=== PATIENT | male | born 1960 | race Caucasian/White ===

== ENCOUNTER 2019-12-24 13:42 | Inpatient (IN) | payer OTHER ==
[2019-12-24 14:33] LABS: #Lymphocytes 0.7 thou/uL (1.20-3.40); #Monocytes 0.3 thou/uL (0.11-0.59); #Neutrophils 3.6 thou/uL (1.40-6.50); %Basophils 0.3 % (0.0-1.0); %Lymphocytes 15.2 % (21.0-51.0); %Monocytes 5.8 % (0.0-10.0); %Neutrophils 78.8 % (42.0-75.0); Hemoglobin 15.6 g/dL (14.0-18.0); Mean Corpuscular HGB CONC 32.4 g/dL (32.0-36.0); Mean Corpuscular Hemoglobin 30.8 pg (27.0-31.0); Mean Corpuscular Volume 94.9 fL (78.0-98.0); Mean Platelet Volume 7.4 fL (7.4-10.4); Platelet Count 165 thou/uL (130-400); RBC Distribution Width 11.8 % (11.5-14.5); Red Blood Cell (RBC) Count 5.07 mill/uL (4.70-6.10); White Blood Cell (WBC) Count 4.6 thou/uL (4.8-10.8)
[2019-12-24 14:56] LABS: ALT (SGPT) 14 U/L (8-55); AST (SGOT) 22 U/L (5-34); Albumin 3.8 g/dL (3.5-5.0); Alkaline Phosphatase 92 U/L (40-110); Anion Gap 15 mmol/L (10-20); BUN (Urea Nitrogen) 15 mg/dL (8.4-25.7); Bilirubin, Total 0.3 mg/dL (0.2-1.2); Calc. Creatinine Clearance 0 mL/min (70-130); Calcium 8.1 mg/dL (7.8-10.44); Carbon Dioxide 17 mmol/L (22-29); Chloride 106 mmol/L (98-107); Estimated GFR-MDRD 85; Glucose 103 mg/dL (70-105); Protein, Total 6.8 g/dL (6.0-8.3); Sodium 134 mmol/L (136-145)
--- NOTE | 2019-12-24 15:18 | CT ---
CHEST CT WITHOUT IV CONTRAST: HISTORY: Shortness of breath. History of positive COVID. FINDINGS: There are extensive patchy poorly defined opacity changes bilaterally involving the majority of the r ight and left lungs. Some of this could well represent some underlying chronic interstitial disease, but this has a significant component of subtle ground-glass opacity changes as well as crazy paving pattern described with COVID lung disease. There are some scattered small mediastinal lymph nodes. There is no significant pleural effusion. Visualized upper abdomen is unremarkable, except for a s mall hiatal hernia. There is minimal right posterior pleural thickening and some minimal linear subp leural changes, possibly some associated partial atelectasis. Three-vessel coronary artery calcific disease. IMPRESSION: Extensive ground-glass opacity changes noted bilaterally and an appearance that is consistent with th at of crazy paving pattern, a finding that can be seen in association with COVID 19. No significan t pleural effusion. Small hiatal hernia. Other findings as above. POS: [facility]
--- NOTE | 2019-12-24 15:24 | CT ---
BRAIN CT WITHOUT IV CONTRAST: HISTORY: Shortness of breath, COVID positive. COMPARISON: 11/17/2016. FINDINGS: No focal mass or midline shift. No intra- or extraaxial hemorrhage. Stable circumscribed lucency in the left parietal bone of the skull. IMPRESSION: No significant acute intracranial process. No mass or bleed. Findings were discussed with Macie in the emergency room at 3:15 p.m. who indicated she would conta ct Dr. Pardo in this regard. CODE CR
[2019-12-24] MEDS ORDERED: hydrALAZINE 20 MG/ML VIAL SLOW IVP PRN (21:24)
[2019-12-24] MEDS ORDERED: Ondansetron PF 4 MG/2 ML Vial IVP PRN (21:24)
[2019-12-24] MEDS ORDERED: Ondansetron ODT 4 MG TAB PO PRN (21:24)
[2019-12-24] MEDS: Acetaminophen 325 MG TAB PO PRN (21:41)
[2019-12-24] MEDS ORDERED: Enoxaparin Sodium 100 MG/ML SYRINGE SC SCH (21:45)
[2019-12-24] MEDS: Azithromycin 500 MG in Sodium Chloride 0.9% 250 ML 250 ML IVPB SCH (21:50)
[2019-12-24] MEDS: Sodium Chloride 0.9% 1,000 ML IV SCH (21:50)
--- NOTE | 2019-12-24 22:49 | HP ---
PRIMARY CARE PHYSICIAN: None. CHIEF COMPLAINT: "I am having trouble breathing." HISTORY OF PRESENT ILLNESS: Mr. Edmondson is a pleasant 59-year-old gentleman, who has a history of asthma as well as COPD. He is currently in the custody of the [place] [facility]. He says that about 3 or 4 days ago, he started having trouble with breathing. He said he thought it was initially an asthma attack, but it got progressively worse. He says about 2 days ago he got tested for COVID-19 and was positive. He says over the course of few days, it has become increasingly worse. He says he aches all over. He has only had an occasional cough. He has had some fever, he says for the past 3 days as well as some nausea, but no vomiting. He says he has no appetite and has not eaten much in the last 2 days. He denies having any diarrhea; however. He denies any leg pain specifically other than generalized body aches and he says his arms feel a little bit weak in both upper extremities, both the right and the left. He was sent over from the skilled nursing due to concerns for increasing oxygen requirements. His O2 sats were dropping into the 80s even on supplemental oxygen via nasal cannula and he was evaluated here in the ER. CT scan showed bilateral ground-glass opacities and he is being admitted for further treatment. REVIEW OF SYSTEMS: All systems were reviewed and are negative except for that mentioned in the history of present illness. PAST MEDICAL HISTORY: Significant for asthma as well as COPD. PAST SURGICAL HISTORY: He has had surgery on his neck as well as his legs. ALLERGIES: TO VALIUM; HE SAYS, IT CAUSES HIM TO BLACKOUT. SOCIAL HISTORY: He is a former smoker. He quit about 30 years ago. Prior to that, he smoked up to 2 packs a day. He denies any alcohol use. He does admit to methamphetamine abuse in the past and he did say he used injection methamphetamine. FAMILY HISTORY: No history of any heritable diseases. CURRENT MEDICATIONS: Taken from the ER records and include; 1. Tegretol 200 mg two times a day. 2. Baclofen 20 mg twice daily. 3. Naprosyn 500 mg twice a day. 4. Prilosec 40 mg daily. PHYSICAL EXAMINATION: GENERAL: He is alert and oriented. He appears to be in no acute distress. He is well developed and well nourished. VITAL SIGNS: Blood pressure is 122/74, heart rate is ranging from 113 to 97, respiratory rate is around 22, and temperature was 99.5. HEENT: Pupils are equal, round, and reactive. Extraocular muscles are intact. Sclerae anicteric. Throat; no erythema, no exudates. NECK: No adenopathy. No bruits. LUNGS: He has bilateral fine crackles throughout and a mild expiratory wheeze. No rhonchi. CARDIOVASCULAR: Heart rate is a bit rapid. It is regular. There are no murmurs, clicks, or rubs. ABDOMEN: Soft. It is nontender, nondistended. Positive for bowel sounds. No rebound. No guarding. No organomegaly. EXTREMITIES: There is no clubbing or cyanosis. No edema. No calf tenderness. No joint effusions. NEUROLOGIC: His cranial nerves 2 through 12 are intact. Muscle strength is 5/5 in both his upper and lower extremities. He has palpable dorsalis pedis pulses bilaterally. Good capillary refill. SKIN AND INTEGUMENT: No skin changes. No rash. LABORATORY RESULTS: The white blood cell count is 4.6, hemoglobin 15.6, hematocrit is 48.1, and platelet count is 165. Sodium 134, potassium 4.0, chloride is 106, CO2 is 17, BUN of 15, creatinine 0.91, glucose is 103. Troponin . Again, CT findings are consistent with bilateral ground-glass opacities and that is by my reading. ASSESSMENT: This is a pleasant 59-year-old gentleman, who presents with acute respiratory failure with hypoxemia due to COVID-19 pneumonia. He is requiring high amounts of supplemental oxygen. He will be admitted to the hospital. We will place him on azithromycin, albuterol metered dose inhaler q.6 hours. We will hold off on any steroids right now as he does not have a lot of significant wheezing on exam. We will put him on anticoagulation due to the concerns for thrombosis in these patients. Monitor his inflammatory markers and if he decompensates, we will consult Pulmonology and see whether or not he is a candidate for remdesivir or convalescent plasma, but at that this time we will be treating supportive. Job ID: [id number]
[2019-12-25] MEDS: Albuterol 200 PUFF (6.7GM INHALER) INH SCH ×5 (00:49→23:59)
[2019-12-25] MEDS ORDERED: Albuterol Sulfate 2.5 mg/3 ml Neb NEB SCH (01:00)
[2019-12-25] MEDS: HYDROcodone/Acetaminophen 5/325 mg Tablet PO PRN ×2 (01:47→06:17)
[2019-12-25 05:15] LABS: #Lymphocytes 1.2 thou/uL (1.20-3.40); #Monocytes 0.2 thou/uL (0.11-0.59); #Neutrophils 3.8 thou/uL (1.40-6.50); %Basophils 0.2 % (0.0-1.0); %Eosinophils 0.1 % (0.0-10.0); %Lymphocytes 22.2 % (21.0-51.0); %Monocytes 4.5 % (0.0-10.0); %Neutrophils 72.9 % (42.0-75.0); Hemoglobin 14.7 g/dL (14.0-18.0); Mean Corpuscular HGB CONC 33.9 g/dL (32.0-36.0); Mean Corpuscular Hemoglobin 31.9 pg (27.0-31.0); Mean Corpuscular Volume 93.9 fL (78.0-98.0); Mean Platelet Volume 7.5 fL (7.4-10.4); Platelet Count 142 thou/uL (130-400); RBC Distribution Width 11.6 % (11.5-14.5); Red Blood Cell (RBC) Count 4.63 mill/uL (4.70-6.10); White Blood Cell (WBC) Count 5.3 thou/uL (4.8-10.8)
[2019-12-25 05:34] LABS: Anion Gap 13 mmol/L (10-20); BUN (Urea Nitrogen) 13 mg/dL (8.4-25.7); CRP (Inflammatory) 15.59 mg/dL (= or < 0.5); Calc. Creatinine Clearance 144 mL/min (70-130); Calcium 7.8 mg/dL (7.8-10.44); Carbon Dioxide 21 mmol/L (22-29); Chloride 105 mmol/L (98-107); Estimated GFR-MDRD Greater than 90; Glucose 95 mg/dL (70-105); Potassium 3.9 mmol/L (3.5-5.1); Sodium 135 mmol/L (136-145)
[2019-12-25] MEDS: Mometasone 100 MCG/Formoterol 5 MCG 120 PUFF INHALER INH SCH ×2 (09:34→17:42)
[2019-12-25] MEDS: Ascorbic Acid 500 mg Chewable Tablet PO SCH (09:35)
[2019-12-25] MEDS: Folic Acid/Vit B Comp W-C PO SCH (09:36)
[2019-12-25] MEDS: Enoxaparin Sodium 100 MG/ML SYRINGE SC SCH ×2 (09:36→19:27)
--- NOTE | 2019-12-25 12:40 | PDOC.HOSPP ---
- Subjective Encounter Date: 12/25/19 Encounter Time: 12:39 Subjective: Mr. Edmondson was seen today in follow-up of COVID positive pneumonia. He notes body aches. He says he feels the degree of dyspnea is the same. - Objective Vital Signs & Weight: Vital Signs (12 hours) Temp Pulse Resp BP Pulse Ox 12/25/19 09:35 100.4 F H 93 24 H 104/61 91 L 12/25/19 03:50 99.9 F H 98 22 H 96/63 93 L 12/25/19 00:59 99.6 F 101 H 23 H 106/64 99 Weight Weight 228 lb 9.6 oz I&O: 12/24/19 12/25/19 12/26/19 06:59 06:59 06:59 Intake Total 1159 Output Total 950 Balance 209 Result Diagrams: 12/25/19 04:55 12/25/19 04:55 Hospitalist ROS - Medication Medications: Active Medications Generic Name Dose Route Start Last Admin Trade Name Freq PRN Reason Stop Dose Admin Acetaminophen 650 mg 12/24/19 21:24 12/24/19 21:41 Tylenol PO 650 mg Q4H PRN Administration Headache/Fever/Mild Pain (1-3) Hydrocodone Bitart/Acetaminophen 1 tab 12/24/19 21:24 12/25/19 06:17 [place] 5/325 PO 1 tab Q4H PRN Administration Moderate Pain (4-6) Albuterol Sulfate 2 puff 12/25/19 01:00 12/25/19 06:17 Proventil Hfa INH 2 puff [id number] KENYON Administration Ascorbic Acid 1,000 mg 12/25/19 09:00 12/25/19 09:35 Vitamin C PO 1,000 mg DAILY KENYON Administration Enoxaparin Sodium 100 mg 12/25/19 09:00 12/25/19 09:36 Lovenox SC 100 mg 0900,2100 KENYON Administration Azithromycin 500 mg/ Sodium 250 mls @ 250 mls/hr 12/24/19 22:30 12/24/19 21: 50 Chloride IVPB 250 mls 2230 KENYON Administration Sodium Chloride 1,000 mls @ 60 mls/hr 12/24/19 21:24 12/24/19 21:50 Normal Saline 0.9% IV 1,000 mls .[id number] KENYON Administration Mometasone Furoate/Formoterol Fumar 2 puff 12/25/19 06:30 12/25/19 09:34 Dulera 100 Mcg/5 Mcg Inhaler INH 2 puff BID-RT KENYON Administration Ondansetron HCl 4 mg 12/24/19 21:24 12/24/19 21:43 Zofran IVP 4 mg Q6H PRN Administration Nausea/Vomiting Pantoprazole Sodium 40 mg 12/25/19 09:00 12/25/19 09:36 Protonix PO 40 mg DAILY KENYON Administration Vitamin B Complex/Vit C/Folic Acid 1 tab 12/25/19 09:00 12/25/19 09:36 Nephro-Alicia Tablet PO 1 tab DAILY KENYON Administration - Exam Eye: PERRL, anicteric sclera Heart: RRR, no murmur, no gallops, no rubs, normal peripheral pulses Respiratory: rales (+ rales bilaterally, no wheezing or rhonchi) Gastrointestinal: soft, non-tender, non-distended, normal bowel sounds, no palpable masses, no hepatomegaly Extremities: no cyanosis, no edema (Palpable pulses bilaterally, no lesions) Hosp A/P (1) Acute and chronic respiratory failure with hypoxia Code(s): J96.21 - ACUTE AND CHRONIC RESPIRATORY FAILURE WITH HYPOXIA Status: Acute (2) Pneumonia due to COVID-19 virus Code(s): U07.1 - COVID-19; J12.89 - OTHER VIRAL PNEUMONIA Status: Acute (3) COPD (chronic obstructive pulmonary disease) Status: Acute - Plan * Acute on chronic respiratory failure due to COVID positive pneumonia- continue supportive care * Continue Azithromycin and high flow oxygen * Will continue anticoagulation *
[2019-12-25] MEDS: Acetaminophen 325 MG TAB PO PRN ×2 (12:42→17:42)
[2019-12-25] MEDS: Sodium Chloride 0.9% 1,000 ML IV SCH (12:54)
[2019-12-25] MEDS: Ibuprofen 800 MG TAB PO PRN (19:27)
[2019-12-25] MEDS: Azithromycin 500 MG in Sodium Chloride 0.9% 250 ML 250 ML IVPB SCH (21:38)
[2019-12-26] MEDS: Sodium Chloride 0.9% 1,000 ML IV SCH ×2 (05:36→20:37)
[2019-12-26] MEDS: Albuterol 200 PUFF (6.7GM INHALER) INH SCH ×2 (05:36→16:45)
[2019-12-26] MEDS: Mometasone 100 MCG/Formoterol 5 MCG 120 PUFF INHALER INH SCH (05:36)
[2019-12-26] MEDS: Ibuprofen 800 MG TAB PO PRN (05:42)
[2019-12-26] MEDS: Folic Acid/Vit B Comp W-C PO SCH (09:17)
[2019-12-26] MEDS: Enoxaparin Sodium 100 MG/ML SYRINGE SC SCH ×2 (09:17→20:38)
[2019-12-26] MEDS: Ascorbic Acid 500 mg Chewable Tablet PO SCH (09:17)
[2019-12-26] MEDS ORDERED: Propofol 1,000 MG/100 ML VIAL IV ONE (14:06)
[2019-12-26] MEDS ORDERED: PROPOFOL 20 ML ONE (14:06)
[2019-12-26] MEDS ORDERED: CCU Electrolyte Replacement 1 EACH FS ONE (14:07)
[2019-12-26] MEDS ORDERED: Rocuronium Bromide 10 MG/ML (10ML VIAL) ONE (14:07)
[2019-12-26] MEDS ORDERED: Ventilator Sedation Protocol 1 EACH FS SCH (14:15)
[2019-12-26] MEDS ORDERED: Lorazepam 2 MG/ML VIAL SLOW IVP PRN (14:16)
[2019-12-26] MEDS ORDERED: DISCONTINUE PREVIOUS NARCOTIC PAIN MEDICATIONS AND BENZODIAZEPINES FS SCH (14:16)
[2019-12-26] MEDS ORDERED: Fentanyl BOLUS 250 ML IVPB PRN (14:16)
[2019-12-26] MEDS ORDERED: Morphine 2 MG/ML SYRINGE SLOW IVP PRN (14:16)
[2019-12-26] MEDS ORDERED: Propofol BOLUS 1,000 MG/100 ML VIAL IV PRN (14:16)
[2019-12-26] MEDS ORDERED: Potassium Chloride 40 MEQ in Sodium Chloride 0.9% 250 ML 250 ML IVPB PRN (14:21)
[2019-12-26] MEDS ORDERED: Potassium Phosphate 9 MMOL in Sodium Chloride 0.9% 100 ML IVPB PRN (14:21)
[2019-12-26] MEDS ORDERED: Potassium Phosphate 12 MMOL in Sodium Chloride 0.9% 250 ML 250 ML IV PRN (14:21)
[2019-12-26] MEDS ORDERED: PHOS-NAK 1 PKT PACK PO PRN ×2 (14:21)
[2019-12-26] MEDS ORDERED: Potassium Chloride 20 MEQ TAB PO PRN (14:21)
[2019-12-26] MEDS ORDERED: Potassium Phosphate 15 MMOL in Sodium Chloride 0.9% 250 ML 250 ML IV PRN (14:21)
[2019-12-26] MEDS ORDERED: CCU ELECTROLYTE REPLACEMENT PROTOCOL FS PRN (14:21)
[2019-12-26] MEDS ORDERED: Magnesium 2 GM/50 ML 2 GM in Premix Bag 1 BAG IVPB PRN (14:21)
[2019-12-26] MEDS ORDERED: Magnesium Oxide 400 MG TAB PO PRN ×2 (14:21)
[2019-12-26] MEDS ORDERED: Potassium Chloride 40 MEQ in Premix Bag 1 BAG IVPB PRN (14:21)
[2019-12-26 14:47] LABS: Actual Bicarbonate (HCO3a) 19.2 mEq/L (22-28); Base Excess (BEa) -6.9 mEq/L (-2.0 to +3.0); CO2 Tension 40.8 mmHg (35.0-45.0); Calcium, Ionized 1.18 mmol/L (1.12-1.30); Carboxyhemoglobin (COHb) 0.7 gm% (0.0-3.0); Hemoglobin (Hb) 15.5 g/dL (14.0-18.0); O2 Tension (PaO2), arterial 92.7 mmHg (80.0-100.0); pH, Arterial 7.29 (7.35-7.45)
[2019-12-26 14:49] LABS: Puncture Site RRA
--- NOTE | 2019-12-26 15:58 | RAD ---
SINGLE VIEW OF THE CHEST: COMPARISON: None. HISTORY: Central line placement. FINDINGS: A single view of the chest shows a normal-size cardiomediastinal silhouette. An endotracheal tube is seen with its tip between the clavicles. An NG tube courses off the inferior aspect of the film. A left subclavian central venous catheter is seen with its tip in the superior vena cava. Diffuse mix ed alveolar/interstitial opacities are seen. IMPRESSION: 1. Appropriate position of lines and tubes. 2. Multifocal infiltrates. POS: [facility]
--- NOTE | 2019-12-26 15:59 | OP ---
DATE OF PROCEDURE: 12/26/2019 PROCEDURE PERFORMED: Left subclavian central line placement. PREOPERATIVE DIAGNOSIS: Poor IV access. POSTOPERATIVE DIAGNOSIS: Successful central line placement. ANESTHESIA: None. DESCRIPTION OF PROCEDURE: The patient under anesthesia for the intubation. His left subclavian area was cleansed with chlorhexidine and draped sterilely. 1% lidocaine was used to anesthetize the entry site. Using modified Seldinger technique, a triple-lumen catheter was placed in the left subclavian vein on the first attempt without difficulty. Three ports flushed venous blood and x-ray placement was confirmed. Job ID: [id number]
[2019-12-26] MEDS ORDERED: SODIUM CHLORIDE 0.9% IV SCH (16:00)
[2019-12-26] MEDS ORDERED: TOCILIZUMAB IV SCH (16:00)
[2019-12-26] MEDS: Vecuronium 10 MG VIAL IVP PRN ×4 (16:03→22:00)
[2019-12-26] MEDS: Propofol 1,000 MG/100 ML VIAL IV PRN ×2 (16:03→22:45)
[2019-12-26] MEDS: Tocilizumab 400 MG in Sodium Chloride 0.9% 80 ML IV SCH (17:02)
[2019-12-26] MEDS: methylPREDNISolone Sod Succ 40 MG VIAL IVP SCH (17:02)
[2019-12-26] MEDS: fentaNYL Citrate/PF 2,000 MCG in Sodium Chloride 0.9% 60 ML IV SCH (18:13)
[2019-12-26] MEDS ORDERED: Ipratropium/Albuterol Sulfate 4 GM AER IH SCH (19:00)
--- NOTE | 2019-12-26 21:07 | CON ---
DATE OF CONSULTATION: 12/26/2019 TIME SPENT: 35 minutes critical care time. HISTORY OF PRESENT ILLNESS: I have been consulted by Dr. Ramires to see this 59-year-old male prisoner from the [facility], who has COVID-19 infection with pneumonia. He was transferred to the ICU earlier today with increasing hypoxemia. He has underlying COPD and asthma. He is on high-flow oxygen with best O2 saturations in the mid-to-high 80s. PAST MEDICAL HISTORY: COPD. PAST SURGICAL HISTORY: Neck and leg surgery in the past. ALLERGIES: VALIUM. SOCIAL HISTORY: Former smoker, quit 30 years ago. Smoked 2 packs per day prior to that. Has a history of methamphetamine abuse. Does not consume alcohol. MEDICATIONS: Prior to admission; 1. Tegretol 200 mg b.i.d. 2. Baclofen 20 mg twice daily. 3. Naprosyn 500 mg twice daily. 4. Prilosec 40 mg daily. REVIEW OF SYSTEMS: Remarkable for shortness of breath, chest pain. PHYSICAL EXAMINATION: VITAL SIGNS: Pulse 106, blood pressure 139/69, O2 saturation 88% on 70% high-flow nasal cannula, temperature currently 96.2. GENERAL: The patient is an elderly gentleman, who appears tachypneic and in respiratory distress. HEENT: Unremarkable. NECK: No adenopathy or JVD. LUNGS: Diffuse crackles. CARDIAC: S1, S2. Tachycardic. ABDOMEN: Soft and nontender. EXTREMITIES: No clubbing, cyanosis, or edema. LABORATORY DATA: Ferritin level 644. Sodium 135, potassium 3.9, chloride 105, CO2 of 21, BUN 13, creatinine 0.8, and glucose 95. C-reactive protein is 23, troponin 0.02. D-dimer was 0.67. White blood cell count 5.3, hematocrit 43.5, and platelet count 142. A CT of the chest showed diffuse bilateral infiltrates. ASSESSMENT: 1. COVID-19 pneumonia with severe hypoxemia. 2. Acute hypoxic respiratory failure. PLAN: 1. This patient will be intubated and placed on prone ventilation. I feel his chances to deteriorate in the next several hours are too great to continue him on the high-flow nasal cannula. The patient will be started on IL-6 inhibitor, steroids, and get convalescent serum. He is a little too far into the pneumonia as far as hypoxemia for Remdesivir to do any good. 2. He is on anticoagulation for the chest pain with enoxaparin. Likely we will need some type of central line placed for the purpose of administering IV medications. 3. Keep paralyzed until further noticed. Job ID: [id number]
[2019-12-26] MEDS: Azithromycin 500 MG in Sodium Chloride 0.9% 250 ML 250 ML IVPB SCH (22:46)
[2019-12-27] MEDS: methylPREDNISolone Sod Succ 40 MG VIAL IVP SCH ×5 (00:22→23:53)
[2019-12-27] MEDS: Vecuronium 10 MG VIAL IVP PRN ×9 (00:23→20:19)
[2019-12-27] MEDS: Propofol 1,000 MG/100 ML VIAL IV PRN ×5 (00:44→23:55)
[2019-12-27 05:01] LABS: ALT (SGPT) 12 U/L (8-55); AST (SGOT) 25 U/L (5-34); Albumin 3.3 g/dL (3.5-5.0); Alkaline Phosphatase 82 U/L (40-110); Anion Gap 13 mmol/L (10-20); BUN (Urea Nitrogen) 12 mg/dL (8.4-25.7); Bilirubin, Total 0.2 mg/dL (0.2-1.2); CRP (Inflammatory) 22.05 mg/dL (= or < 0.5); Calc. Creatinine Clearance 148 mL/min (70-130); Calcium 8.5 mg/dL (7.8-10.44); Carbon Dioxide 23 mmol/L (22-29); Chloride 106 mmol/L (98-107); Estimated GFR-MDRD Greater than 90; Globulin 3.4 g/dL (2.4-3.5); Glucose 119 mg/dL (70-105); Potassium 4.4 mmol/L (3.5-5.1); Protein, Total 6.7 g/dL (6.0-8.3); Sodium 138 mmol/L (136-145)
[2019-12-27 05:12] LABS: Band 2 % (5-11); Hemoglobin 15.2 g/dL (14.0-18.0); Lymphocytes 11 % (21-51); MDiff Complete? YES; Mean Corpuscular Hemoglobin 30.9 pg (27.0-31.0); Mean Corpuscular Volume 96.3 fL (78.0-98.0); Mean Platelet Volume 8.2 fL (7.4-10.4); Monocytes 2 % (0-10); Myelocyte 1 % (0-0); Neutrophil 84 % (42-75); Platelet Count 203 thou/uL (130-400); RBC Distribution Width 11.8 % (11.5-14.5); Red Blood Cell (RBC) Count 4.93 mill/uL (4.70-6.10); White Blood Cell (WBC) Count 4.3 thou/uL (4.8-10.8)
[2019-12-27 06:46] VITALS: BMI 30.5
[2019-12-27 07:47] LABS: Actual Bicarbonate (HCO3a) 21.5 mEq/L (22-28); Base Excess (BEa) -5.5 mEq/L (-2.0 to +3.0); CO2 Tension 47.6 mmHg (35.0-45.0); Carboxyhemoglobin (COHb) 0.5 gm% (0.0-3.0); Hemoglobin (Hb) 14.8 g/dL (14.0-18.0); O2 Tension (PaO2), arterial 169.1 mmHg (80.0-100.0); Potassium - ABG Lab 4.39 mmol/L (3.70-5.30); pH, Arterial 7.27 (7.35-7.45)
[2019-12-27 07:48] LABS: Puncture Site RR
[2019-12-27] MEDS: Enoxaparin Sodium 100 MG/ML SYRINGE SC SCH ×2 (08:05→20:12)
[2019-12-27] MEDS: Ascorbic Acid 500 mg Chewable Tablet PO SCH (08:05)
[2019-12-27] MEDS: Folic Acid/Vit B Comp W-C PO SCH (08:09)
--- NOTE | 2019-12-27 08:58 | PRG ---
DATE OF SERVICE: 12/27/2019 35 minutes of critical care time. SUBJECTIVE: This patient remains intubated in a prone position, on mechanical ventilation with his COVID-19 pneumonia. He is being continuously paralyzed for facilitation of compliance with ventilator. OBJECTIVE: VITAL SIGNS: His temperature is 98.1 with no fever overnight, pulse is 89, and blood pressure 110/64. As far as IV fluids, he is getting normal saline at 60 mL/h. HEENT: Difficult to assess because he is in the prone position. NECK: No JVD. LUNGS: Crackles bilaterally. CARDIOVASCULAR: S1, S2. Regular. ABDOMEN: Cannot be assessed because he is in a prone position. EXTREMITIES: No edema. LABORATORY DATA: Sodium 138, potassium 4.4, chloride 106, CO2 of 23, BUN 12, creatinine 0.7, and glucose 119. Ferritin 549. C-reactive protein 22. White blood cell count 4.3, hematocrit 47.5, and platelet count 203. The pH 7.27, pCO2 of 47, PO2 of 169 on SIMV rate 22, tidal volume 500, PEEP 10, pressure support 10, FiO2 90%. His chest x-ray looks about the same with bilateral infiltrates. ASSESSMENT: COVID-19 pneumonia with acute hypoxic respiratory failure, requiring mechanical ventilation. PLAN: 1. The patient has received IL-6 inhibitor and remdesivir. He is yet to receive the convalescent serum. 2. He will be prone, ventilated till this afternoon while he will be turned over for at least a brief amount of time to see how he does. 3. I have switched him over to bilevel ventilation. 4. He will continue on IV corticosteroids. 5. Start nutritional support. Prognosis guarded. Job ID: [id number]
--- NOTE | 2019-12-27 09:52 | RAD ---
CHEST 1 VIEW: INDICATION: History of pneumonia. COMPARISON: Prior exam dated 12/26/2019. IMPRESSION: Bilateral airspace, cardiomegaly, and pulmonary vascular congestion is similar-appearing. NG tube, g astric catheter, and left subclavian central venous catheter are unchanged. Portions of the left dennis g apex are excluded. POS: [facility]
[2019-12-27] MEDS: Famotidine/PF 20 mg/2ml Vial SLOW IVP SCH ×2 (09:56→20:12)
--- NOTE | 2019-12-27 10:08 | PDOC.HOSPP ---
- Subjective Encounter Date: 12/26/19 (Late entry) Encounter Time: 11:00 Subjective: Mr. Edmondson was seen in follow-up of respiraoty failure due to COVID positive pneumonia. He notes increasing difficulty breathing. He also notes chest pain in the center of his chest. - Objective Vital Signs & Weight: Vital Signs (12 hours) Pulse Resp BP Pulse Ox 12/27/19 08:13 90 130/75 12/27/19 08:00 28 H 12/27/19 07:33 103 H 110/64 12/27/19 06:00 22 H 12/27/19 04:00 22 H 12/27/19 03:02 100 12/27/19 02:00 22 H 12/27/19 00:26 91 22 H 100 12/27/19 00:00 22 H 100 Weight Admit Weight 228 lb 9.6 oz Weight 225 lb 4.999 oz Most Recent Monitor Data Heart Rate from ECG 82 NIBP 133/76 NIBP BP-Mean 95 Respiration from ECG 28 SpO2 99 I&O: 12/26/19 12/27/19 12/28/19 06:59 06:59 06:59 Intake Total 2745 1654 240 Output Total 850 1380 160 Balance 1895 274 80 Result Diagrams: 12/27/19 04:29 12/27/19 04:29 Hospitalist ROS - Medication Medications: Active Medications Generic Name Dose Route Start Last Admin Trade Name Freq PRN Reason Stop Dose Admin Acetaminophen 650 mg 12/24/19 21:24 12/25/19 17:42 Tylenol PO 650 mg Q4H PRN Administration Headache/Fever/Mild Pain (1-3) Hydrocodone Bitart/Acetaminophen 1 tab 12/24/19 21:24 12/25/19 06:17 [place] 5/325 PO 1 tab Q4H PRN Administration Moderate Pain (4-6) Albuterol/Ipratropium 3 ml 12/26/19 19:00 12/27/19 07:33 Duoneb NEB 3 ml [id number] KENYON Administration Ascorbic Acid 1,000 mg 12/25/19 09:00 12/27/19 08:05 Vitamin C PO 1,000 mg DAILY KENYON Administration Enoxaparin Sodium 100 mg 12/25/19 09:00 12/27/19 08:05 Lovenox SC 100 mg 09,2100 KENYON Administration Famotidine 20 mg 12/27/19 09:00 12/27/19 09:56 Pepcid SLOW IVP 20 mg BID KENYON Administration Azithromycin 500 mg/ Sodium 250 mls @ 250 mls/hr 12/24/19 22:30 12/26/19 22: 46 Chloride IVPB 250 mls 2230 KENYON Administration Sodium Chloride 1,000 mls @ 60 mls/hr 12/24/19 21:24 12/26/19 20:37 Normal Saline 0.9% IV 1,000 mls .[id number] KENYON Administration Fentanyl Citrate 2,000 mcg/ 100 mls @ 0 mls/hr 12/26/19 14:16 12/26/19 18:13 Sodium Chloride IV 01/25/20 14:16 100 mls INF KENYON Administration Protocol Per Protocol Tocilizumab 400 mg/ Sodium 100 mls @ 100 mls/hr 12/26/19 16:00 12/26/19 17:02 Chloride IV 100 mls 1600 KENYON Administration Ibuprofen 800 mg 12/25/19 12:43 12/26/19 05:42 Motrin PO 800 mg Q6H PRN Administration Moderate Pain (4-6) Methylprednisolone Sodium Succinate 40 mg 12/26/19 18:00 12/27/19 06:18 Solu-Medrol IVP 40 mg Q6HR KENYON Administration Ondansetron HCl 4 mg 12/24/19 21:24 12/24/19 21:43 Zofran IVP 4 mg Q6H PRN Administration Nausea/Vomiting Propofol 1,000 mg 12/26/19 14:16 12/27/19 08:05 Diprivan IV 01/25/20 14:16 1,000 mg INF PRN Administration TO ACHIEVE GOAL RASS Protocol Vecuronium [place] 10 mg 12/26/19 14:11 12/27/19 09:56 Norcuron IVP 10 mg Q30MIN PRN Administration Agitation Vitamin B Complex/Vit C/Folic Acid 1 tab 12/25/19 09:00 12/27/19 08:09 Nephro-Alicia Tablet PO 1 tab DAILY KENYON Administration - Exam Eye: PERRL, anicteric sclera Heart: RRR, no murmur, no gallops, no rubs, normal peripheral pulses Gastrointestinal: soft, non-tender, non-distended, normal bowel sounds, no palpable masses Extremities: no cyanosis, no edema Hosp A/P (1) Acute and chronic respiratory failure with hypoxia Code(s): J96.21 - ACUTE AND CHRONIC RESPIRATORY FAILURE WITH HYPOXIA Status: Acute (2) Pneumonia due to COVID-19 virus Code(s): U07.1 - COVID-19; J12.89 - OTHER VIRAL PNEUMONIA Status: Acute (3) COPD (chronic obstructive pulmonary disease) Status: Acute - Plan * Acute on chronic respiratory failure due to COVID positive pneumonia- his condition appears to be deteriorating * Will move him to the ICU, and consult PCCM to aid in his management * Continue Azithromycin and high flow oxygen * Will continue anticoagulation * I have discussed his case with Dr. Meehan
--- NOTE | 2019-12-27 10:12 | PDOC.EVN ---
Event Note - Event Note Event Note: Patient seen from a distance. He has been intubated, and placed in the prone position. He is not a candidate for Remdisivir, but has been placed on IL-6 inhibitor. Continue Lovenox, and other supportive care.
[2019-12-27] MEDS: fentaNYL Citrate/PF 2,000 MCG in Sodium Chloride 0.9% 60 ML IV SCH (13:17)
[2019-12-27] MEDS: Sodium Chloride 0.9% 1,000 ML IV SCH ×2 (14:22→20:14)
[2019-12-27] MEDS: Tocilizumab 400 MG in Sodium Chloride 0.9% 80 ML IV SCH (16:00)
[2019-12-27] MEDS ORDERED: Pancrelipase DR 12000 1 CAP FS PRN (18:14)
[2019-12-27] MEDS ORDERED: Sodium Bicarbonate Tab 325 MG TAB PER TUBE PRN (18:14)
[2019-12-27] MEDS: Azithromycin 500 MG in Sodium Chloride 0.9% 250 ML 250 ML IVPB SCH (21:54)
[2019-12-28] MEDS: Vecuronium 10 MG VIAL IVP PRN ×5 (01:11→08:15)
[2019-12-28 04:25] VITALS: TEMP 99.2
[2019-12-28 04:40] LABS: #Lymphocytes 0.6 thou/uL (1.20-3.40); #Monocytes 0.3 thou/uL (0.11-0.59); #Neutrophils 6.8 thou/uL (1.40-6.50); %Basophils 0.2 % (0.0-1.0); %Eosinophils 0.1 % (0.0-10.0); %Lymphocytes 7.3 % (21.0-51.0); %Neutrophils 88.3 % (42.0-75.0); Hemoglobin 12.7 g/dL (14.0-18.0); Mean Corpuscular HGB CONC 33.4 g/dL (32.0-36.0); Mean Corpuscular Hemoglobin 31.5 pg (27.0-31.0); Mean Corpuscular Volume 94.4 fL (78.0-98.0); Mean Platelet Volume 8.1 fL (7.4-10.4); Platelet Count 249 thou/uL (130-400); RBC Distribution Width 11.6 % (11.5-14.5); Red Blood Cell (RBC) Count 4.03 mill/uL (4.70-6.10); White Blood Cell (WBC) Count 7.7 thou/uL (4.8-10.8)
[2019-12-28 04:55] LABS: ALT (SGPT) 17 U/L (8-55); AST (SGOT) 26 U/L (5-34); Albumin 2.9 g/dL (3.5-5.0); Alkaline Phosphatase 66 U/L (40-110); Anion Gap 10 mmol/L (10-20); BUN (Urea Nitrogen) 24 mg/dL (8.4-25.7); Bilirubin, Total 0.4 mg/dL (0.2-1.2); CRP (Inflammatory) 6.99 mg/dL (= or < 0.5); Calc. Creatinine Clearance 155 mL/min (70-130); Calcium 7.9 mg/dL (7.8-10.44); Carbon Dioxide 22 mmol/L (22-29); Chloride 110 mmol/L (98-107); Estimated GFR-MDRD Greater than 90; Globulin 2.7 g/dL (2.4-3.5); Glucose 157 mg/dL (70-105); Potassium 3.4 mmol/L (3.5-5.1); Protein, Total 5.6 g/dL (6.0-8.3); Sodium 139 mmol/L (136-145)
[2019-12-28] MEDS: Propofol 1,000 MG/100 ML VIAL IV PRN ×4 (05:37→19:36)
[2019-12-28] MEDS: methylPREDNISolone Sod Succ 40 MG VIAL IVP SCH ×3 (05:38→18:02)
[2019-12-28 07:13] LABS: Actual Bicarbonate (HCO3a) 21.5 mEq/L (22-28); Base Excess (BEa) -1.3 mEq/L (-2.0 to +3.0); CO2 Tension 30.7 mmHg (35.0-45.0); Calcium, Ionized 1.17 mmol/L (1.12-1.30); Carboxyhemoglobin (COHb) 0.5 gm% (0.0-3.0); Hemoglobin (Hb) 13.4 g/dL (14.0-18.0); O2 Tension (PaO2), arterial 116.8 mmHg (80.0-100.0); Potassium - ABG Lab 3.64 mmol/L (3.70-5.30); pH, Arterial 7.46 (7.35-7.45)
[2019-12-28 07:28] LABS: ALV-art Gradient 201.325 (0-20); Puncture Site RRAD
[2019-12-28] MEDS: Famotidine/PF 20 mg/2ml Vial SLOW IVP SCH ×2 (07:28→19:34)
[2019-12-28] MEDS: Enoxaparin Sodium 100 MG/ML SYRINGE SC SCH ×2 (07:29→19:35)
[2019-12-28] MEDS: Ascorbic Acid 500 mg Chewable Tablet PO SCH (07:29)
[2019-12-28] MEDS: Folic Acid/Vit B Comp W-C PO SCH (07:29)
[2019-12-28] MEDS: Sodium Chloride 0.9% 1,000 ML IV SCH (07:30)
[2019-12-28] MEDS: fentaNYL Citrate/PF 2,000 MCG in Sodium Chloride 0.9% 60 ML IV SCH (08:58)
--- NOTE | 2019-12-28 09:18 | PRG ---
DATE OF SERVICE: 12/28/2019 35 minutes of critical care time. SUBJECTIVE: The patient has been in a supine position since being taken out of prone yesterday afternoon. He has been oxygenating well. He has been kept paralyzed. OBJECTIVE: VITAL SIGNS: Temperature 98.4, pulse 95, blood pressure 112/82, and O2 saturation 100%. 24-hour intake 3095, output 1345. HEENT: Unremarkable. NECK: No adenopathy or JVD. LUNGS: Clear anteriorly. ABDOMEN: Soft. CARDIAC: Rhythm is now sinus. EXTREMITIES: No edema. LABORATORY DATA: A pH 7.46, pCO2 of 30, pO2 of 116 that is on bilevel rate 28, high pressure 28, low pressure 12, FiO2 of 50%. White blood cell count 7.7, hematocrit 38, platelet count 249. Sodium 139, potassium 3.4, chloride 110, CO2 of 22, BUN 24, creatinine 0.7, glucose 157, and ferritin 504. C-reactive protein down to 6.9 from 22. His x-ray is a touch better. ASSESSMENT: 1. COVID-19 with pneumonia. 2. Acute respiratory failure requiring mechanical ventilation. 3. Improvement in inflammatory profile. PLAN: 1. Continue the current interventions including corticosteroids, remdesivir, anticoagulation. 2. I have reduced his mechanical ventilation settings. 3. We will start a fentanyl drip in hope of getting him off the paralysis. Job ID: [id number]
--- NOTE | 2019-12-28 10:24 | RAD ---
SINGLE VIEW OF THE CHEST: COMPARISON: 12/27/2019. HISTORY: Pneumonia. FINDINGS: A single view of the chest shows a normal-size cardiomediastinal silhouette. The endotracheal tube, NG tube, and central venous catheter are unchanged in position. Diffuse increased interstitial lung markings are present. There may be superimposed airspace opacities in the bilateral lower lobes, lef t greater than right. IMPRESSION: Stable exam. POS: EAA
[2019-12-28] MEDS: Lorazepam 2 MG/ML VIAL SLOW IVP PRN ×3 (11:37→18:01)
--- NOTE | 2019-12-28 15:10 | PDOC.EVN ---
Event Note - Event Note Event Note: Patient seen from a distance. He continues to require mechanical ventilation. No problems reported by staff. Continue as per PCCM recommendations.
[2019-12-28] MEDS ORDERED: Amiodarone 300 MG in Dextrose 5% in Water 100 ML IVPB SCH (15:30)
[2019-12-28] MEDS: Tocilizumab 400 MG in Sodium Chloride 0.9% 80 ML IV SCH (15:30)
[2019-12-28] MEDS ORDERED: Amiodarone 450 MG in Dextrose 5% in Water 250 ML IVPB SCH (15:30)
[2019-12-28 18:22] VITALS: BP 99/60
[2019-12-28] MEDS ORDERED: Diltiazem HCl 125 MG, Admixture Fee 1 EACH in Sodium Chloride 0.9% 100 ML IVPB SCH (19:30)
--- NOTE | 2019-12-28 23:35 | DIS ---
DATE OF ADMISSION: 12/24/2019 DATE OF DISCHARGE: 12/28/2019 DISCHARGE DISPOSITION: [facility]. DISCHARGE DIAGNOSES: 1. Acute respiratory failure with hypoxemia. 2. COVID-19 positive pneumonia. 3. Chronic obstructive pulmonary disease. DISCHARGE MEDICATIONS: Include: 1. Methylprednisolone 40 mg IV q.6. 2. Magnesium oxide 800 mg as needed. 3. Ativan as directed. 4. Carbamazepine 200 mg per tube daily. 5. Vitamin C 1000 mg per tube daily. 6. Amiodarone drip. CODE STATUS: Full code. ALLERGIES: DIAZEPAM. IMAGING DONE DURING HOSPITAL STAY: The patient had a CT scan of the chest showing extensive ground-glass opacities that is consistent with a crazy paving pattern, which can be seen in association with COVID-19. The patient had a CT scan of the brain showing no significant acute intracranial process. HOSPITAL COURSE: Mr. Edmondson is a 59-year-old gentleman, who is incarcerated with the [facility] and was sent over due to trouble breathing. He was evaluated in the ER and was found to be hypoxemic. Also, CT of the chest demonstrated bilateral opacities. He was placed in respiratory and contact isolation. A COVID screen was performed and was positive. He was initially placed on a monitored floor but he rapidly decompensated, becoming more hypoxic and having increased work of breathing. Pulmonology was consulted and he was moved to the ICU. The following day, he decompensated further and required mechanical intubation. He was treated with interleukin-6 inhibitor, as well as remdesivir and convalescent plasma. He has been stabilized, but is still requiring ventilator support. An opening at the [facility] has now become available and as such, he is being transferred to [facility] which is the contracted hospital for the [facility] for continuing treatment for his respiratory failure. Job ID: [id number]
== END 2019-12-28 21:21 | disposition short-term general hospital (02) | DRG 208 ==
LOC: EEVIPCON 13:42 → ERS 13:42 → 2SW 19:23 → CCU 12-26 13:04
PROVIDERS: ADMIT Internal Medicine; ATTEND Internal Medicine
PROC: 5A1945Z Respiratory Ventilation, 24-96 Consecutive Hours (ICD-10-PCS; principal; 2019-12-24)
PROC: 8E0ZXY6 Isolation (ICD-10-PCS; 2019-12-24)
PROC: 0BH17EZ Insertion of Endotracheal Airway into Trachea, Via Natural or Artificial Opening (ICD-10-PCS; 2019-12-24)
PROC: 02HV33Z Insertion of Infusion Device into Superior Vena Cava, Percutaneous Approach (ICD-10-PCS; 2019-12-26)
DX: U07.1 COVID-19 (principal); J12.89 Other viral pneumonia; J96.21 Acute and chronic respiratory failure with hypoxia; J44.0 Chronic obstructive pulmonary disease with (acute) lower respiratory infection; Z88.8 Allergy status to other drugs, medicaments and biological substances; Z79.899 Other long term (current) drug therapy; Z87.891 Personal history of nicotine dependence
CPT/HCPCS: 36415; 36430; 70450; 71045; 71250; 80048; 80053; 82728; 82805; 83605; 84484; 85025; 85379; 86140; 86850; 86900; 86901; 93005; 93010; 94002; 94003; 94640; 94760; C1751; J0282; J0456; J1650; J2060; J2270; J2405; J2704; J2920; J3010; J3262; J3480; J3490; J7050; J7070; J7620; S0028